=== PATIENT | male | born 1990 | race Caucasian/White ===

== ENCOUNTER 2020-11-12 17:03 | Emergency (ER) | payer BC ==
--- NOTE | 2020-11-12 17:29 | EDM.PDOC ---
ED HPI GENERAL MEDICAL PROBLEM - General Chief Complaint: General Stated Complaint: rash on left wrist Time Seen by Provider: 11/12/20 17:15 Source of Information: Reports: Patient History Limitations: Reports: No Limitations - History of Present Illness INITIAL COMMENTS - FREE TEXT/NARRATIVE: Patient comes emergency department today with complaints of a rash that started on his left volar surface of his distal forearm and has spread to his left hip right shoulder that is intensely pruritic. He noticed it a couple of days ago when it started after he was out working in the [employer]. He has not tried any therapies for it. Is getting to the point where it so itchy and irritating and spreading that he is concerned about it. No difficulty breathing shortness of breath or swallowing. - Related Data Allergies Allergy/AdvReac Type Severity Reaction Status Date / Time No Known Allergies Allergy Verified 11/12/20 17:04 Home Meds: Home Meds predniSONE [Prednisone] 40 mg PO DAILY 4 Days #8 tablet 11/12/20 [Rx] Past Medical History - Past Surgical History HEENT Surgical History: Reports: Other (See Below) Other HEENT Surgeries/Procedures: ear surgery Social & Family History - Tobacco Use Tobacco Use Status *Q: Never Tobacco User Second Hand Smoke Exposure: No - Caffeine Use Caffeine Use: Reports: Soda - Recreational Drug Use Recreational Drug Use: No ED ROS GENERAL - Review of Systems Review Of Systems: Comprehensive ROS is negative, except as noted in HPI. ED EXAM, GENERAL - Physical Exam Exam: See Below Exam Limited By: No Limitations General Appearance: Alert, WD/WN, No Apparent Distress Nose: Normal Inspection Throat/Mouth: Normal Inspection Head: Atraumatic, Normocephalic Neck: Normal Inspection Respiratory/Chest: No Respiratory Distress, Lungs Clear, No Accessory Muscle Use Cardiovascular: Normal Peripheral Pulses, Regular Rate, Rhythm Peripheral Pulses: 2+: Radial (L), Radial (R) Extremities: Other (He has very similar appearing rash as above on his left hip which would be immediately adjacent to his left forearm as well as his right shoulder which is the appropriate distance for him to touch his volar surface of his left forearm to scratch his back. No secondary infection identified). No: Normal Inspection (On the patient's distal volar left forearm there is a linear delineated line that really appears to be like poison ambreen and/or poison oak. Small papules vesicles that are clear with some clear drainage and crusting. No area of erythema surrounding it concerning for cellulitis.) Neurological: Alert, Oriented Psychiatric: Normal Affect, Normal Mood Skin Exam: Rash (as above) Course - Vital Signs Last Recorded V/S: Last Vital Signs Temp 98.4 F 11/12/20 17:10 Pulse 73 11/12/20 17:10 Resp 16 11/12/20 17:10 BP 139/76 11/12/20 17:10 Pulse Ox 100 11/12/20 17:10 - Re-Assessments/Exams Free Text/Narrative Re-Assessment/Exam: 11/12/20 18:01 This is clearly the presentation of a toxicodendron dermatitis. calamine lotion and exposure soap such as Tecnu to help with symptoms and spread. Prednisone for the next 5 days. He is comfortable with this plan and his questions answered. Departure - Departure Time of Disposition: 17:28 Disposition: Home, Self-Care 01 Clinical Impression: Toxicodendron dermatitis - Discharge Information Instructions: Poison Ambreen Dermatitis, [id number] Referrals: Danielle Hurtado NP [Primary Care Provider] - Additional Instructions: Make sure and wash your body a couple times a day. Prednisone 40mg daily for the next 5 days. First dose in the ED and RX sent to your pharmacy. OTC Calamine lotion to help with itching. Also washing body with OTC Tecnu or other products for post exposure to such things as poison ambreen or oak to help with the spread. Keep the areas covered with calamine lotion and a dressing to help the spread. Return to the ED if new or worsening symptoms. Follow up with PCP in a week if not resolving. Sepsis Event Note (ED) - Evaluation Sepsis Screening Result: No Definite Risk - Focused Exam Vital Signs: Vital Signs Temp Pulse Resp BP Pulse Ox 11/12/20 17:10 98.4 F 73 16 139/76 100
[2020-11-12] MEDS: predniSONE 20 MG Tab PO ONE (17:36)
== END 2020-11-12 17:42 | disposition home or self-care (01) ==
LOC: LL.ED 17:03
DX: L30.8 Other specified dermatitis (principal)
CPT/HCPCS: 99282; 99283; J7512

== ENCOUNTER 2021-02-28 09:38 | Emergency (ER) | payer BC, OTHER ==
[2021-02-28] MEDS ORDERED: Acetaminophen/oxyCODONE 325-5 MG Tab PO ONE (10:23)
[2021-02-28] MEDS ORDERED: Diazepam 5 MG Tab PO ONE (10:23)
[2021-02-28] MEDS ORDERED: Ketorolac 60 MG/2 ML SDV IM ONE (10:23)
[2021-02-28 10:54] LABS: ANION GAP 12.5 meq/L (7-15); CHLORIDE,CL 105 mmol/L (98-107); SODIUM,NA 142 mmol/L (136-145)
[2021-02-28] MEDS ORDERED: Morphine 2 MG/ML SYRINGE IVPUSH ONE (11:21)
[2021-02-28] MEDS ORDERED: Ondansetron 4 MG/2 ML SDV IVPUSH ONE (11:22)
[2021-02-28] MEDS: Sodium Chloride 0.9% 10 ML Syringe FLUSH PRN ×2 (11:33→11:45)
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
== END 2021-02-28 12:45 ==
LOC: LL.ED 09:38
DX: S22.081A Stable burst fracture of T11-T12 vertebra, initial encounter for closed fracture (principal); V49.40XA Driver injured in collision with unspecified motor vehicles in traffic accident, initial encounter; Y92.410 Unspecified street and highway as the place of occurrence of the external cause
CPT/HCPCS: 36415; 72040; 72128; 72131; 80053; 83735; 85025; 96372; 96374; 96375; 99284; 99285-25; A9270-GY; J1885; J2270; J2405